=== PATIENT | female | born 1980 | race Caucasian/White ===

== ENCOUNTER 2018-09-29 10:26 | Outpatient (CLI) | payer BC ==
[~2018-09-29] VITALS: Ht 152.4 cm; Wt 73.0 kg
[~2018-09-29 10:26] MED LIST: CLON0.25 PO; LIRA0.6P PO; METF500T61 PO; METR500T PO; MULT-241 PO
[2018-09-29] MEDS ORDERED: SERT50TA2 PO (11:17)
[2018-09-29] MEDS ORDERED: MULT-884 PO (11:17)
[2018-09-29] MEDS ORDERED: NORG1TAB14 PO (11:17)
[2018-09-29] MEDS ORDERED: CHOL10003 PO (11:17)
[2018-10-02] MEDS ORDERED: IBUP-1780 PO (08:02)
[2018-10-02] MEDS ORDERED: OXYC1TAB87 PO (08:02)
[2018-10-02] MEDS ORDERED: DOCU-143 PO (08:02)
== END 2018-09-29 11:22 | disposition home or self-care (01) ==
LOC: PREOP 10:26
PROVIDERS: ATTEND Obstetrics & Gynecology
DX: Z01.818 Encounter for other preprocedural examination (principal)

== ENCOUNTER 2018-10-02 11:24 | Day surgery (SDC) | payer BC, OTHER ==
--- NOTE | 2018-09-12 17:23 | HISTORY AND PHYSICAL ---
DATE OF SERVICE: PREOPERATIVE HISTORY AND PHYSICAL ADMISSION IS PLANNED FOR 10/02/2018. HISTORY OF PRESENT ILLNESS: The patient is a 38-year-old G2, P2, LC2 white female with a long history of dysfunctional uterine bleeding. She has tried oral contraceptives without significant improvement in her bleeding. She has progressively heavier periods and progressively increasing cramps. She was found to have endometrial hyperplasia and polycystic ovaries on ultrasound on 08/29/2018. She is known to have fibroids contained in her uterus from prior ultrasounds. That was confirmed on this most recent ultrasound as well. The patient has a history that is consistent with endometriosis having had two deliveries in the past. Ultrasound is significant for having multiple fibroids and/or adenomyosis appearance on the ultrasound. The endometrial stripe was 14 mm. The patient denies urinary incontinence. She has no significant issues with her bowel or bladder. She is unable to have intercourse because of the pelvic pain and pressure. She has elected for definitive surgical treatment in the form of total laparoscopic hysterectomy with bilateral salpingo-oophorectomy. She is fully aware of the risks, potential complications, recovery and followup and in particular the need for a long-term hormone replacement to replace the estrogen after a BSO. She is currently taking Sprintec and will continue that after her surgery. ALLERGIES: None. MEDICATIONS: Zoloft 50 mg daily, daily vitamin and Sprintec 1 p.o. daily. Past medical, social and surgical histories are per a prior H and P that is included. PAST SURGICAL HISTORY: two previous C-sections. PHYSICAL EXAMINATION: HEENT: Normal. NECK: Supple, no lymphadenopathy and no thyromegaly. ABDOMEN: Soft, nontender and nondistended. EXTREMITIES: Show no clubbing or cyanosis. There is no Homans sign. PELVIC: Reveals suprapubic tenderness on bimanual exam as well as uterus that is enlarged, globular and tender on palpation. Adnexal exam is consistent with bilateral ovarian tenderness and ovarian fullness as well. The uterus on exam is somewhat fixed in place. LABORATORY DATA: Lab work prior to admission will be obtained on admission. ASSESSMENT AND PLAN: Chronic pelvic pain with dysfunctional uterine bleeding in a patient with apparent endometrial fibroids with some degree of endometrial hyperplasia based on a 14 mm endometrial stripe and with progressive symptoms that have not responded to control with oral contraceptives. Plan now is for admission on 10/02/2018 for a definitive surgical treatment in the form of hysterectomy with bilateral salpingo-oophorectomy. Surgical risks, complication, recovery and followup have been fully discussed. The patient accepts those risks and is ready to proceed with the surgery on that date. Job ID: [id number] DocumentID: [id number] Dictated Date: 09/11/2018 13:09:45 Livestock Handler Date: 09/11/2018 13:30:22 Dictated By: CECILE VARGAS MD MTDD
[~2018-10-02] VITALS: Ht 152.4 cm; Wt 73.0 kg
--- NOTE | 2018-10-02 08:01 | Discharge Instructions ---
Discharge Instructions Discharge Medications New, Converted or Re-Newed RX: RX on Chart Patient Instructions Patient Instructions: As directed Return to The Hospital For: As directed Activity & Diet Discharge Diet: No Restrictions Activity as Tolerated: No Orders-Post D/C & Referrals Follow Up Appt: Return to clinic on Tuesday, October 04, 2018 at 930 a.m. for staple removal Call to make follow up appt. for patient in 4 weeks. Activity: Rest for 24 hours, than as tolerated. Wound Care: May remove Band-Aid tomorrow. Replace as desired. Keep incisions clean and dry. Wash daily with soap and water. Please call in RX to patient pharmacy. Diet: As tolerated-Clear Liquids only if nauseated. shower or tub bathe as desired. No driving for 24 hours, no alcoholic beverages for 24 hours, and nothing per vagina (no tampons, douching, or intercoUrse) for 8 weeks. Patient to return to the clinic as soon as possible for: Temperature greater than 101F, Severe Pain, Foul discharge from incision or vagina, Excessive Bleeding (more than a period). CECILE VARGAS MD Oct 02, 2018 08:01
--- NOTE | 2018-10-02 08:03 | Progress Note-Pre Operative ---
Pre-Operative Progress Note H&P Reviewed The H&P was reviewed, patient examined and no changes noted. Date Seen by Provider: Oct 02, 2018 Time Seen by Provider: 12:30 Date H&P Reviewed: Oct 02, 2018 Time H&P Reviewed: 12:30 Pre-Operative Diagnosis: Dysfunctional uterine bleeding/chronic pelvic pain/ menorrhagia/endometriosi CECILE VARGAS MD Oct 02, 2018 08:03
--- NOTE | 2018-10-02 08:04 | Progress Note-Post Operative ---
Post-Operative Progess Note Surgeon (s)/Pharmacometrician (s) Surgeon CECILE VARGAS MD Pharmacometrician: Alessandra Harp Pre-Operative Diagnosis Dysfunctional uterine bleeding/chronic pelvic pain/menorrhagia/endometriosi Post-Operative Diagnosis Same with recurrent endometriosis and with pathology pending Procedure & Operative Findings Date of Procedure 10/02/18 Procedure Performed/Findings TLH with BSO Anesthesia Type GETA Estimated Blood Loss Estimated blood loss (mL): 50cc Specimens/Packing Specimens Removed Uterus tubes and ovaries Packing: None CECILE VARGAS MD Oct 02, 2018 08:04
[~2018-10-02 11:24] MED LIST changes: +CHOL10003 PO; +DOCU-143 PO; +IBUP-1780 PO; +MULT-884 PO; +NORG1TAB14 PO; +OXYC1TAB87 PO; +SERT50TA2 PO
--- OUTSIDE RECORDS SUMMARY | 2018-10-02 11:28 | XMS REPORT | Clinical Summary ---
Author Author [facility] Organization [facility] Address Unknown Phone Unavailable Care Team Providers Care Event Promoter Name Role Phone Quirino Johnson PCP Source Comments Some departments are not documenting in the electronic medical record. If you do not see the information that you expected, contact Release of Information in the Health Information Management department at [phone] for further assistance in locating additional records.[facility] Allergies Not on File Medications Not on file Active Problems Not on file Social History Date Tobacco Use Types Packs/Day Years Used Never Assessed Sex Assigned at Date Recorded Not on file Industry Job Start Date Occupation Not on file Not on file Not on file Travel End Travel History Travel Start No recent travel history available. Last Filed Vital Signs Not on file Plan of Treatment Health Maintenance Due Date Last Done Comments PHYSICAL (COMPREHENSIVE) 1988 EXAM HIV SCREENING 1996 DTAP/TDAP VACCINES ( - 1999 Tdap) CERVICAL CANCER SCREENING 2011 INFLUENZA VACCINE 03/01/2019 Results Not on filefrom Last 3 Months
--- OUTSIDE RECORDS SUMMARY | 2018-10-02 11:28 | XMS REPORT | Continuity of Care Document ---
Author Author [facility] Organization [facility] Address Unknown Phone Unavailable Allergies Active Description Code Type Severity Reaction Onset Reported/Identified Relationship to Patient Clinical Status Yes NO KNOWN DRUG ALLERGIES NO KNOWN DRUG ALLERG UNKNOWN Yes NO KNOWN DRUG ALLERGIES UNKNOWN NO KNOWN DRUG ALLERG Yes No Known Drug Allergies [id number] Drug Allergy Unknown N/A 09/01/2010 Yes No Known Allergies No Known Allergies Drug Allergy Unknown N/A 2017 Medications Medication Packaging Start Date Stop Date Route Dosage Sig GI COCKTAIL SINGLE DOSE LIQ (GRASSHOPPER) ML 10/05/2016 10/05/2016 ONCE&1743 ONDANSETRON TAB 4 MG (ZOFRAN) MG 10/05/2016 PRN ONCE LACTATED RINGERS 1000CC IV BAG INJ ml 11/26/2016 12/03/2016 CONTINUOUSEVERY 0 Hour LACTATED RINGERS 1000CC IV BAG INJ ml 11/30/2016 12/07/2016 CONTINUOUSEVERY 0 Hour FAMOTIDINE VIAL INJ 20 MG/2CC (PEPCID VIAL) MG 12/13/2017 12/13/2017 ONCE&1159 GI COCKTAIL SINGLE DOSE LIQ (GRASSHOPPER) ML 12/13/2017 12/13/2017 ONCE&1159 ONDANSETRON VIAL INJ 4 MG/2CC (ZOFRAN 2CC VIAL) MG 12/13/2017 12/13/2017 ONCE&1159 PANTOPRAZOLE VIAL INJ 40 MG (PROTONIX IV) MG 12/13/2017 12/13/2017 ONCE&1159 NORMAL SALINE 500CC IV BAG INJ 0.9 % (NS 500CC IV BAG) ml 12/13/2017 12/13/2017 ONCE&1237 Problems Date Dx Coded Attending Type Code Diagnosis Diagnosed By 07/28/2010 Ot 644.03 09/06/2010 Ot 285.9 ANEMIA NOS 09/06/2010 Ot 644.21 EARLY ONSET DELIVERY-DEL 09/06/2010 Ot 647.61 OTH VIRAL DIS-DELIVERED 09/06/2010 Ot 648.22 ANEMIA- DELIVERED W P/P 09/06/2010 Ot V27.0 DELIVER- SINGLE LIVEBORN 03/04/2011 Ot 727.51 03/04/2011 Ot 729.5 04/08/2015 Ot 574.20 04/08/2015 Ot 789.01 04/08/2015 Ot 789.06 04/08/2015 Ot 727.51 04/08/2015 Ot 729.5 04/08/2015 Ot 729.81 04/08/2015 VANBECELAEREBLADE M CERTIFIED HEALTH EDUCATION SPECIALIST Ot 719.47 04/08/2015 VANBECELAERE, BLADE M CERTIFIED HEALTH EDUCATION SPECIALIST Ot 959.7 04/08/2015 VANBECELAERE BLADE M CERTIFIED HEALTH EDUCATION SPECIALIST Ot E000.8 04/08/2015 VANBECELAERE BLADE M CERTIFIED HEALTH EDUCATION SPECIALIST Ot E849.0 04/08/2015 VANBECELAERESHERYLSA M CERTIFIED HEALTH EDUCATION SPECIALIST Ot E888.9 04/23/2015 DARWIN HAYNES FACC, ALI FACP CCDS Ot 256.4 04/23/2015 DARWIN HAYNES FAC, ALI FACP CCDS Ot 311 04/23/2015 DARWIN HAYNES FACC, ALI FACP CCDS Ot 736.79 04/23/2015 DARWIN HAYNES FACC, ALI FACP CCDS Ot 785.2 04/23/2015 DARWIN HAYNES FACC, ALI FACP CCDS Ot 786.09 04/30/2015 DARWIN HAYNES FACC, ALI FACP CCDS Ot 256.4 04/30/2015 DARWIN HAYNES FACC, ALI FACP CCDS Ot 311 04/30/2015 DARWIN HAYNES FACC, ALI FACP CCDS Ot 736.79 04/30/2015 DARWIN HAYNES FACC, ALI FACP CCDS Ot 785.1 04/30/2015 DARWIN HAYNES FACC, ALI FACP CCDS Ot 786.09 10/05/2016 Blaise Jenkins 530.81 ESOPHAGEAL REFLUX 10/05/2016 Blaise Jenkins K21.9 GASTRO-ESOPHAGEAL REFLUX DISEASE WITHOUT ESOPHAGITIS 10/05/2016 Blaise Jenkins R11.10 VOMITING, UNSPECIFIED 11/12/2016 Ot 727.51 POPLITEAL SYNOVIAL CYST 11/12/2016 Ot 729.5 PAIN IN LIMB 11/12/2016 Ot 729.81 SWELLING OF LIMB 11/12/2016 BLADE LAWRENCE CERTIFIED HEALTH EDUCATION SPECIALIST Ot 719.47 JOINT PAIN-ANKLE 11/12/2016 BLADE LAWRENCE CERTIFIED HEALTH EDUCATION SPECIALIST Ot 959.7 LOWER LEG INJURY NOS 11/12/2016 BLADE LAWRENEC CERTIFIED HEALTH EDUCATION SPECIALIST Ot E000.8 OTHER EXTERNAL CAUSE STATUS 11/12/2016 BLADE LAWRENCE CERTIFIED HEALTH EDUCATION SPECIALIST Ot E849.0 ACCIDENT IN HOME 11/12/2016 BLADE LAWRENCE CERTIFIED HEALTH EDUCATION SPECIALIST Ot E888.9 FALL NOS 11/12/2016 DARWIN HAYNES FACC, ALI FACP CCDS Ot 256.4 POLYCYSTIC OVARIES 11/12/2016 DARWIN HAYNES FACC, ALI FACP CCDS Ot 311 DEPRESSIVE DISORDER NEC 11/12/2016 DARWIN HAYNES FACC, ALI FACP CCDS Ot 736.79 ACQ ANKLE-FOOT DEF NEC 11/12/2016 DARWIN HAYNES FACC, ALI FACP CCDS Ot 785.1 PALPITATIONS 11/12/2016 DARWIN HAYNES FACC, ALI FACP CCDS Ot 786.09 RESPIRATORY ABNORM NEC 11/12/2016 DARWIN HAYNES FACC, ALI FACP CCDS Ot 256.4 POLYCYSTIC OVARIES 11/12/2016 DARWIN HAYNES FACC, ALI FACP CCDS Ot 311 DEPRESSIVE DISORDER NEC 11/12/2016 DARWIN BAIGC, ALI FACP CCDS Ot 736.79 ACQ ANKLE-FOOT DEF NEC 11/12/2016 DARWIN BAIGC, ALI FACP CCDS Ot 785.2 CARDIAC MURMURS NEC 11/12/2016 DARWIN BAIGC, ALI FACP CCDS Ot 786.09 RESPIRATORY ABNORM NEC 11/30/2016 Kristian Hoang 531.30 ACUTE GASTRIC ULCER WITHOUT MENTION OF HEMORRHAGE OR PERFORATION, WITHOUT MENTION OF OBSTRUCTION 11/30/2016 Kristian Hoang 535.10 ATROPHIC GASTRITIS, WITHOUT MENTION OF HEMORRHAGE 11/30/2016 Krisitan Hoang 787.02 NAUSEA ALONE 11/30/2016 Kristian Hoang A 789.06 ABDOMINAL PAIN, EPIGASTRIC 11/30/2016 Kristian Hoang K25.3 ACUTE GASTRIC ULCER WITHOUT HEMORRHAGE OR PERFORATION 11/30/2016 Kristian Hoang K29.30 CHRONIC SUPERFICIAL GASTRITIS WITHOUT BLEEDING 11/30/2016 Kristian Hoang R10.13 EPIGASTRIC PAIN 11/30/2016 Kristian Hoang R11.0 NAUSEA 12/13/2017 Blaise Jenkins 780.79 OTHER MALAISE AND FATIGUE 12/13/2017 Blaise Jenkins 787.01 NAUSEA WITH VOMITING 12/13/2017 Blaise Jenkins 995.29 UNSPECIFIED ADVERSE EFFECT OF OTHER DRUG, MEDICINAL AND BIOLOGICAL SUBSTANCE 12/13/2017 Blaise Jenkins R11.2 NAUSEA WITH VOMITING, UNSPECIFIED 12/13/2017 Blaise Jenkins R53.83 OTHER FATIGUE 12/13/2017 Blaise Jenkins T40.2X5A ADVERSE EFFECT OF OTHER OPIOIDS, INITIAL ENCOUNTER Procedures Code Description Performed By Performed On 74.1 LOW CERVICAL 09/02/2010 Results Test Result Range Lipase - 10/05/16 18:02 Lipase 46 U/L 7-59 Protime - 11/30/16 10:38 INR 1.0 1.0-4.0 Protime 11.7 Sec 9.9-12.8 Surgical Pathology - 11/30/16 11:37 Surg Path Sent to [place] [facility] Troponin I - 12/13/17 12:08 Troponin <0.020 ng/mL 0.0-0.4 Thyroid Stimulating Hormone - 03/17/18 08:10 TSH 1.67 mIU/mL 0.32-5.00 Encounters ACCT No. Visit Date/Time Discharge Status Pt. Type Provider Facility Loc./Unit Complaint [id number] 09/29/2018 10:26:00 09/29/2018 11:22:00 DIS Outpatient SAM HAYNES, CECILE Alas [facility] PREOP DUB/CPP/FIBROIDS /ENDOMETRIAL HYPERPLASIA [id number] 04/17/2015 07:55:00 04/17/2015 23:59:59 CLS Outpatient WENDY GRANADOS MD, FACC, FACP CCDS [facility] CARD DYSPNEA, HEART MURMUR [id number] 04/08/2015 10:06:00 04/08/2015 23:59:59 CLS Outpatient WENDY GRANADOS MD, FACC, FACP CCDS [facility] CARD HEART MURMUR , DYSPNEA [id number] 07/04/2013 14:41:00 07/04/2013 23:59:59 CLS Outpatient BLADE LAWRENCE [facility] RAD LT FOOT PAIN/ LT ANKLE PAIN FROM FALL [id number] 10/02/2018 13:00:00 PEN Preadmit SAM HAYNES, CECILE Alas [facility] CPP, DUB, FIBROIDS, ENDOMETIRAL HYPERPLASIA [id number] 04/08/2015 10:07:00 Document Registration [id number] 04/08/2015 10:07:00 Document Registration [id number] 04/08/2015 10:06:00 Document Registration [id number] 01/13/2012 14:09:00 Document Registration [id number] 09/01/2010 21:55:00 Document Registration [id number] 07/28/2010 11:33:00 Document Registration [id number] 03/17/2018 08:08:00 03/17/2018 23:59:00 DIS Outpatient Lilibeth Person [id number] 12/13/2017 11:49:00 12/13/2017 13:36:00 DIS Outpatient Blaise Jenkins [id number] 11/30/2016 00:00:00 11/30/2016 12:23:00 DIS Outpatient Kristian Hoang [id number] 11/26/2016 00:00:00 11/26/2016 00:00:00 CAN Outpatient Kristian Hoang [id number] 10/05/2016 17:15:00 10/05/2016 19:20:00 DIS Outpatient Blaise Jenkins [id number] 10/05/2016 17:43:38 Document Registration 03/27/17 09/21/2018 23:18:49 09/21/2018 23:59:59 CLS Outpatient Lilibeth Person [id number] 09/25/2017 05:32:21 ACT Document Registration [id number] 09/10/2017 14:11:00 09/10/2017 15:13:00 DIS Emergency Dmitriy HAYNES, Hesham Tavares [facility] MARY
[2018-10-02 11:30] VITALS: BP 104/69
[2018-10-02] MEDS ORDERED: BUP/EPI 0.5% 1:200,000 (SENSORCAINE) 30 ML VIAL ONE (12:06)
[2018-10-02 12:11] LABS: BASOPHILS % (AUTO) 0 % (0-10); EOSINOPHILS % (AUTO) 0 % (0-10); HEMATOCRIT 31 % (35-52); HEMOGLOBIN 10.2 G/DL (11.5-16.0); LYMPHOCYTES # (AUTO) 1.7 X 10^3 (1.0-4.0); LYMPHOCYTES % (AUTO) 34 % (12-44); MEAN CORPUSCULAR HEMOGLOBIN 29 PG (25-34); MEAN CORPUSCULAR HGB CONC 33 G/DL (32-36); MEAN CORPUSCULAR VOLUME 89 FL (80-99); MEAN PLATELET VOLUME 9.1 FL (7.4-10.4); MONOCYTES # (AUTO) 0.3 X 10^3 (0.0-1.0); MONOCYTES % (AUTO) 7 % (0-12); NEUTROPHILS # (AUTO) 2.9 X 10^3 (1.8-7.8); NEUTROPHILS % (AUTO) 59 % (42-75); PLATELET COUNT 226 10^3/uL (130-400); RED CELL DISTRIBUTION WIDTH 13.8 % (10.0-14.5); WHITE BLOOD COUNT 4.9 10^3/uL (4.3-11.0)
[2018-10-02] MEDS: LACTATED RINGERS 1,000 ML IV PRN ×2 (12:25→13:23)
[2018-10-02] MEDS ORDERED: WATER (STERILE) FOR INJECTION 10 ML ONE ×2 (12:30→14:40)
[2018-10-02] MEDS ORDERED: ceFAZolin INJECTION 1,000 MG ONE (12:30)
[2018-10-02] MEDS ORDERED: LIDOCAINE PF 2% 5 ML (XYLOCAINE) VIAL ONE (12:31)
[2018-10-02] MEDS ORDERED: proPOfol 200 MG/20 ML (DIPRIVAN) VIAL IV ONE (12:31)
[2018-10-02] MEDS ORDERED: fentaNYL INJECTION 100 MCG/2 ML AMP ONE (12:33)
[2018-10-02] MEDS ORDERED: MIDAZOLAM 2 MG/2 ML (VERSED) VIAL ONE (12:33)
--- NOTE | 2018-10-02 12:41 | Progress Note-Pre Operative ---
Pre-Operative Progress Note H&P Reviewed The H&P was reviewed, patient examined and no changes noted. Date Seen by Provider: Oct 02, 2018 Time Seen by Provider: 12:41 Date H&P Reviewed: Oct 02, 2018 Time H&P Reviewed: 12:41 Pre-Operative Diagnosis: Uterine bleeding/menorrhagia/chronic pelvic pain/ endometriosis CECILE VARGAS MD Oct 02, 2018 12:41
[2018-10-02] MEDS ORDERED: ceFAZolin INJECTION 1,000 MG in WATER (STERILE) FOR INJECTION 10 ML IV ONE (12:45)
[2018-10-02] MEDS ORDERED: CATHETER FLUSH 10 ML SYR IV PRN (13:00)
[2018-10-02] MEDS ORDERED: ONDANSETRON 4 MG/2 ML (SDV) Z0FRAN ONE ×2 (14:08→14:37)
[2018-10-02] MEDS ORDERED: DEXAMETHASONE 10 MG/ML (DECADRON) 1 ML VIAL ONE (14:08)
[2018-10-02] MEDS ORDERED: SEVOFLURANE (ULTANE) 15 ML INHAL SOLN ONE (14:08)
[2018-10-02] MEDS ORDERED: KETOROLAC 30 MG/ML VIAL ONE (14:10)
[2018-10-02] MEDS ORDERED: morphine INJ 10 MG/ML 1ML (SYR OR VIAL) ONE (14:11)
[2018-10-02] MEDS ORDERED: PROMETHAZINE INJ 25 MG/ML (PHENERGAN) AMP ONE (14:27)
[2018-10-02] MEDS ORDERED: ESTROGENS CONJ IV 25 MG/5 ML (PREMARIN) VIAL ONE (14:40)
[2018-10-02] MEDS ORDERED: ESTROGENS CONJ IV 25 MG/5 ML (PREMARIN) VIAL IVP ONE (14:45)
[2018-10-02] MEDS ORDERED: PROMETHAZINE INJ 25 MG/ML (PHENERGAN) AMP IM PRN (14:45)
[2018-10-02] MEDS ORDERED: WATER (STERILE) FOR INJ 10 ML BTL INJ ONE (14:45)
[2018-10-02] MEDS ORDERED: ONDANSETRON 4 MG/2 ML (SDV) Z0FRAN IVP PRN ×2 (14:45→15:00)
[2018-10-02] MEDS ORDERED: MEPERIDINE (DEMEROL) INJ 100 MG/ML IM PRN (14:45)
[2018-10-02] MEDS ORDERED: fentaNYL INJECTION 100 MCG/2 ML AMP IVP ONE (15:00)
[2018-10-02] MEDS ORDERED: PROMETHAZINE INJ 25 MG/ML (PHENERGAN) AMP IVP ONE (15:00)
[2018-10-02] MEDS ORDERED: HYDROmorphone 2 MG/ML VIAL (DILAUDID) IV ONE (15:00)
--- NOTE | 2018-10-02 15:30 | NUR ---
pt to room 306 from recovery room. pt sleepy but responds to verbal stimuli. IV infusing per gravity. resp unlabored. HRRR. abd soft with abdominal incisions intact with dressing on. pt moves extremities to command. SCD's on bilaterally. gonzalez cath to bedside drainage. pt reports pressure "from the cath". oriented to person place and time.
[2018-10-02] MEDS ORDERED: D5 LR IV SOLUTION 1,000 ML IV ONE (15:41)
[2018-10-02] MEDS: D5 LR IV SOLUTION 1,000 ML IV SCH (16:00)
--- NOTE | 2018-10-02 16:00 | NUR ---
D5LR started at 125ml/hr/pump. pt remains sleepy, denies need for pain medication. rates pain level 5. IV site patent. family at bedside. abd soft with incisions intact. v pad intact. gonzalez draining to bedside drainage. pt moves extremities to command.
--- NOTE | 2018-10-02 16:30 | NUR ---
RT coming for incentive spirometry
--- NOTE | 2018-10-02 17:00 | NUR ---
sleeping. gonzalez draining to bedside drainage. denies need for pain medication.
--- NOTE | 2018-10-02 17:30 | NUR ---
taking sips of water. denies nausea. remains sleepy. denies need for pain medication. SCD's on bilaterally
--- NOTE | 2018-10-02 18:00 | NUR ---
U.O 350ml clear dilute urine. pt sleeping resp unlabored. IV patent.
[2018-10-02] MEDS: oxyCODONE/APAP 5/325MG (PERCOCET 5) TABLET PO PRN (19:39)
[2018-10-02 19:47] VITALS: BP 118/65
[2018-10-02] MEDS: KETOROLAC 30 MG/ML VIAL IVP SCH (22:12)
[2018-10-02 22:30] VITALS: BP 125/65
[2018-10-03] MEDS: D5 LR IV SOLUTION 1,000 ML IV SCH
[2018-10-03] MEDS: oxyCODONE/APAP 5/325MG (PERCOCET 5) TABLET PO PRN ×2 (00:04→09:00)
--- NOTE | 2018-10-03 00:53 | OPERATIVE REPORT ---
DATE OF SERVICE: 10/02/2018 PREOPERATIVE DIAGNOSES: Dysfunctional uterine bleeding, menorrhagia, chronic pelvic pain, history of endometriosis. POSTOPERATIVE DIAGNOSES: Dysfunctional uterine bleeding, menorrhagia, chronic pelvic pain, history of endometriosis with pathology pending and with cervical polyp noted on exam. OPERATIVE PROCEDURE: Total laparoscopic hysterectomy, bilateral salpingo-oophorectomy as well as some adhesiolysis and destruction of recurrent endometriosis implants. OPERATIVE DESCRIPTION: With the patient in the supine position under satisfactory general anesthesia, she was repositioned in dorsal lithotomy position in the [facility] and prepped and draped in the usual fashion for abdominal and vaginal surgery. Urinary bladder was drained via Bernardo catheter to dependent drainage. Weighted speculum placed in posterior fornix of vagina, cervix exposed and grasped anteriorly with single tooth tenaculum. The uterus was sounded to 9 cm with uterine sound. The cervix was then serially dilated with Travis dilators to accommodate a Evelia II manipulator, which was placed using a 6 mm x 8 cm uterine probe and a 30 mm colpotomy ring. Sutures of #1 Vicryl placed at 3 and 9 o'clock position of the cervix to affix the uterus to the manipulator. The tenaculum and speculum were removed. The patient brought in low dorsal lithotomy position. A 12 mm incision was made 4 cm superior to the umbilicus. Veress needle was placed through that incision into the abdominal cavity. Correct placement was confirmed with water drop test. The abdomen was insufflated with 2.4 liters of carbon dioxide. The Veress needle was removed and a 12 mm Optiview laparoscopic port placed. The towel clip was used and the anterior abdominal wall to assist with elevation. The abdominal wall was transilluminated. An 8 mm ports were placed through incisions of those sizes 9 cm lateral to the umbilicus, a couple of centimeters superior to the umbilicus. The patient had 2 previous laparoscopy incision scars one on each side, the same area was used for this procedure. All three incision sites were infiltrated with 0.25% Marcaine with epinephrine prior to making the incision. The 8 mm ports were placed under direct vision. The patient placed in Trendelenburg allowing the bowel spilled out of the pelvis and then the da Gary column was advanced on the patient and docked. With the operative instruments placed in the right and left lateral port site, I retired to the da Gary console. At the console using a vessel sealer on the right and a bipolar fenestrated grasper on the left, the pelvis was first examined. The uterus was mottled in appearance consistent with extensive adenomyosis. It was also misshapen consistent with likely fibroids. There was obvious endometriosis implants in both ovarian fossa and in the cul-de-sac. The both fallopian tubes were somewhat tortuous and fibrotic. Both ovaries had a hemosiderin deposits consistent with old endometriosis well. Both ureters were seemed to peristalse. There were some adhesions of sigmoid to the left pelvic brim obstructing access to the IP ligament. These were taken down with very careful limits, meticulous dissection taking care to avoid thermal or traumatic injury to bowel vascular or other adjacent structures. Laparoscope was rotated. The appendix was surgically absent. There were some astrid in the cecum where the appendix had been taken out some years ago. Attention was turned back to the pelvis. The right tube and ovary were grasped and elevated. The IP ligament was clamped, cauterized and divided with the vessel sealing going across the mesovarium, across round ligament, across broad ligament and down on to the cardinal ligament with the vessel sealer. Same procedure performed on the left, allowing for removal of both tubes and ovaries eventually with the uterus. The anterior lower uterine segment peritoneum was then exposed and the vessel sealer replaced with monopolar shear. The peritoneum was opened on the lower uterine segment allowing dissection of the vesicovaginal space and allowing the bladder to spill down or slide down be dissected down off of the lower uterine segment and off of the anterior vaginal wall at the cervicovaginal junction. Colpotomy incision was then initiated 12 o'clock position onto the colpotomy ring. That was extended circumferentially until the colpotomy ring was exposed and then the uterus with the tubes and ovaries still attached was extracted through the vagina. Vaginal cuff now closed using two sutures of V-Loc barbed suture starting first on the right angle and continuing almost the left angle and then continuing from the left angle until the entire cuff was closed and using the balance of that suture to reperitonealize the cuff. Care was taken to include the uterine vessel pedicles in the suture closure to ensure hemostasis. The pelvis was now irrigated. Both ureters were seemed to peristalse again as it had throughout the procedure and before initiating the procedure. The endometrial implants were then destroyed using the monopolar shear on the right and the bipolar fenestrated grasper on the left for exposure and manipulation. With all of the endometriosis implants destroyed with the ureter still peristalsing and with no remaining pathology and no bleeding, the procedure was terminated. The operative instruments removed under direct vision as were the ports. The patient's abdomen was evacuated of insufflating gas in the process of removing the ports. The skin incisions were stapled after first closing the fascia at the supraumbilical incision with a [id number] suture of 2-0 Vicryl. Speculum replaced in the vagina. The vaginal cuff was examined and was found to be completely intact and hemostatic. Job ID: [id number] DocumentID: [id number] Dictated Date: 10/02/2018 14:14:08 Senior Auditor Date: 10/03/2018 00:53:18 Dictated By: CECILE VARGAS MD
[2018-10-03] MEDS: KETOROLAC 30 MG/ML VIAL IVP SCH (03:58)
[2018-10-03 04:00] VITALS: BP 116/56
--- NOTE | 2018-10-03 07:49 | Progress Note-Standard ---
Standard Progress Note Progress Notes/Assess & Plan Date Seen by a Provider: Oct 03, 2018 Time Seen by a Provider: 07:48 Progress/Assessment & Plan This patient is without complaint. She is ablating, voiding, tolerating oral intake well has good pain control. Patient denies chest pain, denies shortness breath, denies nausea vomiting, denies headache. Vital Signs Date Time Temp Pulse Resp B/P (MAP) Pulse Ox O2 Delivery O2 Flow Rate FiO2 10/03/18 04:00 98.8 66 16 116/56 (76) 99 Room Air 10/02/18 22:30 98.8 68 16 125/65 (85) 99 Room Air 10/02/18 19:47 97 Room Air 10/02/18 19:47 99.6 72 16 118/65 (82) 97 Room Air 10/02/18 16:00 98.3 88 16 97 10/02/18 16:00 97 Room Air 10/02/18 14:53 98.9 10/02/18 11:30 98.9 66 16 104/69 (81) 100 Room Air I & O 10/03/18 07:00 Intake Total 2870 ml Output Total 2350 ml Balance 520 ml Vital signs are stable. Patient is afebrile. Urine output is more than adequate. The abdomen is benign. The surgical incision dressings are clean and dry. Extreme show clubbing or cyanosis. There is no Homans sign. Pelvic exam is deferred Assessment and plan postoperative day number 1 doing well. Plan is for discharge home with follow-up in clinic Final Diagnosis Dysfunctional uterine bleeding/menorrhagia/chronic pelvic pain/endometriosis CECILE VARGAS MD Oct 03, 2018 07:49
[2018-10-03 08:52] VITALS: BP 115/75
--- NOTE | 2018-10-03 08:59 | NUR ---
DISCHARGE PAPERS PROVIDED AND REVIEWED WITH PT, PT VERBALIZES UNDERSTANDING AND DENIES ANY QUESTIONS AT THIS TIME. PAPER SIGNED.
[2018-10-03] MEDS ORDERED: DOCUSATE SODIUM 100 MG (COLACE) CAP PO SCH (09:00)
--- NOTE | 2018-10-03 09:06 | NUR ---
PT DISCHARGED FROM -306 TO PERSONAL AUTO VIA AMBULATORY IN STABLE CONDITION ACC BY THIS RN AND S/O.
--- NOTE | 2018-10-03 13:57 | Anesthesia-General Post-Op ---
General Patient Condition Mental Status/LOC: Same as Preop Cardiovascular: Satisfactory Nausea/Vomiting: Absent Respiratory: Satisfactory Pain: Controlled Complications: Absent Post Op Complications Complications None Follow Up Care/Instructions Patient Instructions None needed. Anesthesia/Patient Condition Patient Condition Patient was seen this morning in post-op rounds and she was doing well, no complaints, stable vital signs, no apparent adverse anesthesia problems. MARTHA NOLASCO DO Oct 03, 2018 13:56
[2018-10-03] MEDS ORDERED: IBUPROFEN 800 MG (MOTRIN) TAB PO SCH (18:00)
== END 2018-10-03 09:06 | disposition home or self-care (01) ==
LOC: SDC 11:24 → WS 15:41 → SDC 10-03 09:06
PROVIDERS: ATTEND Obstetrics & Gynecology
DX: D25.0 Submucous leiomyoma of uterus (principal); N80.3 Endometriosis of pelvic peritoneum; N80.1 Endometriosis of ovary; N84.1 Polyp of cervix uteri; E28.2 Polycystic ovarian syndrome; N83.8 Other noninflammatory disorders of ovary, fallopian tube and broad ligament; N72 Inflammatory disease of cervix uteri; N83.201 Unspecified ovarian cyst, right side; N83.202 Unspecified ovarian cyst, left side; Z11.2 Encounter for screening for other bacterial diseases; Z79.899 Other long term (current) drug therapy
CPT/HCPCS: 36415; 84703; 85025; 86850; 86900; 86901; 87081